=== PATIENT | male | born 1990 | race African-American/Black ===

== ENCOUNTER 2016-06-10 19:35 | Emergency (ER) | payer SELFPAY ==
[~2016-06-10] VITALS: Ht 182.9 cm; Wt 129.0 kg
[~2016-06-10 19:35] MED LIST: FLEXERIL10 MG PO; NAPROSYN500 MG PO
[2016-06-10 20:36] VITALS: BP 121/92
[2016-06-10 20:48] LABS: HEMATOCRIT 42.2 % (38.0-50.0); MCH 26.6 PG (29.0-34.0); MCHC 33.6 G/DL (30.0-36.0); MCV 79.2 FL (86-99); MEAN PLAT.VOLUME 10.4 uM^3 (9.0-12.4); PLATELET COUNT 224 K/uL (156-360); RED BLOOD COUNT 5.33 M/uL (4.00-5.50); WHITE BLOOD COUNT 7.1 K/uL (4.1-10.2)
[2016-06-10 21:07] LABS: CHLORIDE 105 mEq/L (99-109); SODIUM 141 mEq/L (136-147)
[2016-06-10 21:09] LABS: GLUCOSE 87 mg/dL (70-99)
[2016-06-10 21:10] LABS: ANION GAP 10 MEQ/L (2-14)
[2016-06-10 21:13] LABS: GFR ESTIMATE (CALCULATED) > 59 mL/min/
[2016-06-10 21:14] LABS: UREA NITROGEN (BUN) 10 mg/dL (9-23)
[2016-06-10] MEDS ORDERED: CHERATUSSIN AC473 ML PO (21:17)
[2016-06-10] MEDS ORDERED: PREDNISONE10 M1 PO (21:17)
[2016-06-10] MEDS ORDERED: ZITHROMAX Z-PA250 MG PO (21:17)
== END 2016-06-10 22:05 | disposition home or self-care (01) ==
LOC: EME 19:35
DX: J01.90 Acute sinusitis, unspecified (principal); R05 Cough; F17.200 Nicotine dependence, unspecified, uncomplicated; Z88.1 Allergy status to other antibiotic agents
CPT/HCPCS: 71020; 80048; 85027; 99281; 99284